=== PATIENT | male | born 1990 | race Caucasian/White ===

== ENCOUNTER 2016-07-09 15:49 | Emergency (ER) | payer MEDICAID, OTHER ==
[~2016-07-09] VITALS: Wt 67.3 kg
[~2016-07-09 15:49] MED LIST: IBUP-722 PO; PERCOCET PO
--- NOTE | 2016-07-09 16:41 | ERD ---
ER Documentation Chief Complaint Date/Time DATE: 07/09/16 TIME: 16:40 Chief Complaint SUPRAPUBIC PAIN, PAIN WITH URINATION HPI 26 y/o male presents to ED for dysuria, yellowish penile discharge for about 4 days. Sexually active with one partner. His partner does not have any symptoms. Denies headache, loss of consciousness, dizziness, blurry vision, changes in vision, photophobia, facial pain, ear pain, throat pain, difficulty swallowing, neck pain, shoulder pain, chest pain, cough, hemoptysis, abdominal pain, back pain, loss of appetite, nausea, vomiting, hematochezia, diarrhea, constipation, testicular pain/testicular swelling, genital rash/lesions, genital itchiness, genital bleeding, bladder and bowel incontinences, extremity weakness, extremity tenderness, numbness or tingling sensation, difficulty walking, recent travel, recent exposure to illness, recent antibiotic use in the last 3 months, fever, chills. Allergy: NKA PMH: Denies. Medications: Denies. Surgery: Denies. Family history: Denies. Primary Social History: Smokes one stick of medical marijuana a day. Denies smoking cigarettes. Occasional drinks alcoholic beverages. ROS All systems reviewed and are negative except as per history of present illness. Medications Home Meds Reported Medications Oxycodone Hcl/Acetaminophen (Percocet) 1 Tab Tab, 1 TAB PO [id number] Y for PAIN LEVEL 1-5, TAB 09/24/13 Ibuprofen (MOTRIN) 800 Mg Tablet, 800 MG PO Q6 09/24/13 Allergies Allergies: Coded Allergies: No Known Allergy (Unverified , 09/24/13) PMhx/Soc Medical and Surgical Hx: pt denies Medical Hx, pt denies Surgical Hx History of Surgery: No Anesthesia Reaction: No Hx Neurological Disorder: No Hx Respiratory Disorders: No Hx Cardiac Disorders: No Hx Psychiatric Problems: No Hx Miscellaneous Medical Probl: No Hx Alcohol Use: No Hx Substance Use: No Hx Tobacco Use: No Smoking Status: Never smoker Physical Exam Vitals Vital Signs Date Time Temp Pulse Resp B/P Pulse Ox O2 Delivery O2 Flow Rate FiO2 07/09/16 15:52 97.8 83 17 146/83 97 Physical Exam CONSTITUTIONAL: Well-appearing; well-nourished; in no apparent distress. HEAD: Normocephalic; atraumatic. EYES: Conjunctiva clear, sclera non-icteric, EOM intact. PERRL Ears: Hearing intact. EACs clear, TMs non-bulging, non-inflamed, translucent & mobile, ossicles normal appearance, No obstructions, no erythema, no discharges Nose: No obstructions. No polyps. No external lesions. Mucosa non-inflamed. No external lesions, septum and turbinates normal. No rhinorrhea. No discharges. Frontal sinus is non-tender to palpation. Maxillary sinus is non-tender to palpation. MOUTH: Moist mucous membranes, no lesion, no obstructions, no vesicles, no thrush, patent airway Throat: Uvula in midline. Right tonsil is +1 with no erythema, no exudate. Left tonsil is +1 with no erythema, no exudate. Tolerating secretions well. Good gag reflex. Patent airway. Neck: Supple, without lesions, bruits, or adenopathy. No mass. Thyroid non- enlarged and non-tender to palpation. CHEST: Symmetrical chest. Respirations even and not labored. No retractions noted. CARDIOVASCULAR: Normal S1, S2. RRR. No murmurs, gallops. RESPIRATORY: Normal chest excursion with respiration; breath sounds clear and equal bilaterally; no wheezes, rhonchi, or rales. Breathing even and unlabored. Speaking in clear, full, and complete sentences w/ ease. ABDOMEN: Normal bowel sounds normal. Soft, round, non-distended, non-guarding, no tenderness, no rebound, no organomegaly, no masses, no pulsating abdominal mass. No hernia. No peritoneal signs. : No CVA tenderness. Equal hair distribution. No lesions. No rashes. No vesicular lesions. No penile discharge. No penile bleeding. There is no scrotal swelling/discoloration/tenderness. BACK: Symmetrical shoulder. Spine is midline without deformity, tenderness. No evidence of trauma or deformity. PELVIS: Stable pelvis. No evidence of trauma or deformity. MUSCULOSKELETAL: Normal gait and station. No misalignment, asymmetry, crepitation, defects, tenderness, masses, effusions, decreased range of motion, instability, atrophy or abnormal strength or tone in the head, neck, spine, ribs , pelvis or extremities. No calf tenderness. NEUROVASCULAR: Distal pulses are present. Pedal pulse are present, equal, and normal. Capillary refills are < 2 seconds. NEUROLOGIC: Alert and oriented x4. Speaks full and clear sentences. Cranial Nerves II-XII normal. Sensation to pain, touch, and proprioception normal. Grossly unremarkable. No neurologic deficits. Romberg test is negative. PSYCHOLOGICAL: The patients mood and manner are appropriate. No hallucinations , delusions. Not SI. Not HI. Has the capacity to decide for self SKIN: Normal for age and ethnicity; warm; dry; good turgor; no apparent lesions or exudates. No rashes, hives, discoloration. Intact. Results 24 hrs Laboratory Tests Test 07/09/16 17:25 Urine Bacteria MODERATE Urine Bilirubin NEGATIVE Urine Clarity CLOUDY Urine Color LT. YELLOW Urine Glucose NEGATIVE% Urine Hemoglobin 1+ Urine Ketones NEGATIVE Urine Leukocyte Esterase 3+ Urine Microscopic RBC 2-5/HPF Urine Microscopic WBC >200/HPF Urine Nitrite NEGATIVE Urine Specific [place] 1.020 Urine Total Protein TRACE Urine Urobilinogen 0.2 E.U./dL Urine pH 6.0 Current Medications Medications (Trade) Dose Ordered Sig/Ang Route PRN Reason Start Time Stop Time Status Last Admin Dose Admin Ceftriaxone Sodium (Rocephin) 250 mg ONCE ONCE IM 07/09/16 17:00 07/09/16 17:01 DC 07/09/16 17:04 Azithromycin (Zithromax) 1,000 mg ONCE ONCE PO 07/09/16 17:00 07/09/16 17:01 DC 07/09/16 17:04 Procedures/MDM Examination. Disease process, medical treatment was explained to the patient and family member. They verbalized understanding and agreed with the diagnostic tests, medical treatment, and follow-up care. Urinalysis: Reviewed. Urine culture: Reviewed. Urine for gonorrhea and Chlamydia: Treatment: Rocephin 250 mg IM. Azithromycin 1 g by mouth. Re-evaluation: Denies pain. Denies active bleeding. Denies penile discharge. Denies abdominal pain. Denies scrotal pain. Ambulatory with steady gait. No CVA tenderness. No nausea and vomiting. Consultation: None. Differential diagnosis: Urinary tract infection versus sexually transmitted disease. Medical decision makin26 y/o male presents to ED for dysuria, yellowish penile discharge for about 4 days. Sexually active with one partner. His partner does not have any symptoms. Patient's complaint, patient's history about his complaint, my physical findings are consistent with my final diagnosis of sexually transmitted disease. Medications prescribed are the following: [id number] Tylenol and/or Motrin for supportive treatment for fever and/or pain. Patient and family member are made aware of the side effects and adverse reactions of the medications prescribed. Instructed on when to seek emergent and medical attention in case allergic/anaphylactic reactions or severe side effects and or adverse reactions to medications. Patient and family member verbalized understanding. Patient instructed Instructed to follow-up with his PCP in 24-48 hours. Community resources was also provided. Instructed to Call 911 for chest pain, shortness of breath. Advised to come back here in ED as soon as possible for severity of symptoms which includes but not limited to: any new symptoms; shortness of breath/difficulty of breathing; cardiovascular changes; severe gastrointestinal symptoms; signs and symptoms of bleeding and or infection; signs of compartment syndrome/neurovascular changes; neurological changes/deficits. Patient and family member verbalized understanding. Upon discharge, patient is alert and oriented x 4, speaks full and clear sentences, denies pain, has no neurological deficits, has no neurovascular deficits, difficulty of breathing. Breathing even and unlabored. Lung sounds are clear to auscultation. Not in distress. Appears comfortable. Ambulatory with steady gait. Appears satisfied with care provided here in ED. Departure Diagnosis: Primary Impression: Sexually transmissible disease Condition: Good Additional Instructions: Follow-up with PCP in the next 24-48 hours. Community resources also provided to patient. DALI MCGREGOR Jul 09, 2016 16:41
[2016-07-09] MEDS ORDERED: CEFTRIAXONE 250 MG INJ IM ONE (17:00)
[2016-07-09] MEDS ORDERED: AZITHROMYCIN 250 MG TAB PO ONE (17:00)
[2016-07-09 17:46] LABS: ADD UMIC YES; URINE BILIRUBIN (Dip) NEGATIVE (NEGATIVE); URINE BLOOD (Dip) 1+ (NEGATIVE); URINE COLOR LT. YELLOW (YELLOW); URINE GLUCOSE (Dip) NEGATIVE (NEGATIVE); URINE KETONES (Dip) NEGATIVE (NEGATIVE); URINE LEUKOCYTE ESTERASE (Dip) 3+ (NEGATIVE); URINE NITRITE (Dip) NEGATIVE (NEGATIVE); URINE TOTAL PROTEIN (Dip) TRACE (NEGATIVE); URINE UROBILINOGEN (Dip) 0.2 E.U./dL (0.1-1.0)
[2016-07-09 18:20] LABS: BACTERIA,URINE MODERATE
[2016-07-09] MEDS ORDERED: IBUP-1542 PO (19:08)
== END 2016-07-09 19:17 | disposition home or self-care (01) ==
LOC: FTE 15:49
DX: A64 Unspecified sexually transmitted disease (principal)
CPT/HCPCS: 81001; 87086; 87591; 96372; J0696; Z7502; Z7610; 81003

== ENCOUNTER 2016-11-29 07:24 | Emergency (ER) | END 2016-11-29 08:07 | disposition home or self-care (01) | DX: S05.91XA Unspecified injury of right eye and orbit, initial encounter (principal); X58.XXXA Exposure to other specified factors, initial encounter; Y92.9 Unspecified place or not applicable | CPT/HCPCS: Z7502; Z7610 ==

== ENCOUNTER 2017-09-13 15:07 | Emergency (ER) | END 2017-09-13 17:57 | disposition left against medical advice (07) ==

== ENCOUNTER 2017-09-14 07:16 | Emergency (ER) | END 2017-09-14 10:15 | disposition home or self-care (01) ==

== ENCOUNTER 2018-02-25 07:41 | Emergency (ER) | END 2018-02-25 08:23 | disposition home or self-care (01) ==

== ENCOUNTER 2018-03-03 08:43 | Emergency (ER) | END 2018-03-03 10:04 | disposition home or self-care (01) ==

== ENCOUNTER 2018-04-06 08:15 | Emergency (ER) | END 2018-04-06 10:04 | disposition home or self-care (01) ==